=== PATIENT | female | born 1950 | race American Indian/Alaskan Native ===

== ENCOUNTER 2018-11-18 06:27 | Emergency (ER) | payer MEDICARE ==
--- NOTE | 2018-11-18 07:27 | Emergency Department Report ---
HPI - General Chief Complaint: Medical Clearance Time Seen by Provider: 11/18/18 06:31 - HPI HPI: 68-year-old -[place] female presents to the emergency department via EMS from her [facility] with the complaint of the patient pulling out her own tracheostomy tube around 4 AM this morning. She has a history of cerebral aneurysm with subsequent hemorrhage, vjf-[id number]-okrbutsnd diabetes, hypertension, GERD, GI bleed and has a tracheostomy tube in place from previous respiratory failure. The patient is nonverbal and a poor historian. The alf facility says that the patient has had the tracheostomy tube in place at least since July, when he first got her at their facility. She pulled it out around 4 AM this morning. ED Past Medical Hx - Past Medical History Previous Medical History?: Yes Hx Hypertension: Yes Hx CVA: Yes Hx Diabetes: Yes Hx GERD: Yes Hx Psychiatric Treatment: Yes (depression) Additional medical history: tracheostomy gastrostomy, cerebral anuerysm nonruptured, resp failure - Social History Smoking Status: Unknown if ever smoked - Medications Home Medications: Home Medications Medication Instructions Recorded Confirmed Last Taken Type ALPRAZolam [Xanax TAB] 0.25 mg FEEDTUBE BID 10/29/18 10/29/18 Unknown History Acetaminophen 325 mg FEEDTUBE Q6H 10/29/18 10/29/18 Unknown History Escitalopram 10 mg FEEDTUBE DAILY 10/29/18 10/29/18 Unknown History Famotidine [Pepcid] 20 mg FEEDTUBE BID 10/29/18 10/29/18 Unknown History Gabapentin 100 mg PO BID 10/29/18 10/29/18 Unknown History Glycopyrrolate 2 mg FEEDTUBE Q8H 10/29/18 10/29/18 Unknown History Metoprolol 25 mg FEEDTUBE Q8H 10/29/18 10/29/18 Unknown History Omeprazole 20 mg PO DAILY 10/29/18 10/29/18 Unknown History Ondansetron TAB 4 mg FEEDTUBE Q6H 10/29/18 10/29/18 Unknown History dilTIAZem 30 mg FEEDTUBE Q8H 10/29/18 10/29/18 Unknown History traZODone 50 mg FEEDTUBE HS 10/29/18 10/29/18 Unknown History levoFLOXacin [Levaquin TAB] 750 mg PO Q24HR 5 Days tablet 11/01/18 Unknown Rx ED Review of Systems ROS: Stated complaint: PULL OUT TRACHEOSTOMY Other details as noted in HPI Comment: Unobtainable due to pts medical conditions Physical Exam - Physical Exam Vital Signs: Vital Signs 11/18/18 07:10 Temperature 98.5 F Pulse Rate 65 Respiratory 18 Rate Blood Pressure 163/70 O2 Sat by Pulse 95 Oximetry Physical Exam: GENERAL: The patient is well-developed well-nourished. HENT: Normocephalic. Atraumatic. EYES: Extraocular motions are intact. NECK: Supple. Trachea is midline. There is a stoma to the midline anterior neck. No current bleeding. No surrounding erythema or drainage or signs of symptoms of infection. CHEST/LUNGS: Clear to auscultation. There is no respiratory distress noted. HEART/CARDIOVASCULAR: Regular. There is no tachycardia. There is no murmur. ABDOMEN: Abdomen is soft, nontender. Patient has normal bowel sounds. SKIN: Skin is warm and dry. NEURO: The patient is awake but confused, which appears to be baseline. Nonverbal. Withdraws painful stimuli. MUSCULOSKELETAL: There is no obvious deformity. There is no evidence of acute injury. ED Course Vital Signs 11/18/18 07:10 Temperature 98.5 F Pulse Rate 65 Respiratory 18 Rate Blood Pressure 163/70 O2 Sat by Pulse 95 Oximetry - Procedure Description Procedures done: Procedure: Replacement of tracheostomy tube. The patient apparently had a [address] However it appears that the stoma is starting to close or stenose. There is no current bleeding. The area does not appear infected. We are unable to place a 6 or 5 Shiley secondary to the inflammation or stenosis. However, I did have success with placement of a 4 Shiley uncuffed. There was a very small amount of bleeding, less than 5 mL, after placement that has since stopped. Oxygen saturation is 98% with room air after placement. Chest x-ray has been ordered. No obvious complications from this procedure. This procedure was done with respiratory therapy at bedside, the patient on cardiac monitoring and continuous pulse oximetry. ED Medical Decision Making - Radiology Data Radiology results: image reviewed interpreted by me: Chest x-ray shows appropriate placement of the tracheostomy tube. No pneumonia, pneumothorax. - Medical Decision Making Patient presents after pulling out her own tracheostomy tube at around 4 AM this morning. There is no current bleeding and no signs of any infection. Attempted to place the 6 Shiley, and then the 5 Shiley without any success. She may have R he started to form some stenosis or it could be secondary to inflammation. However I was able to place the 4 Shiley without any obvious competitions. There is a very small amount of bleeding but no concern for a sentinel bleed and the patient was monitored for 2 more hours after tracheostomy tube placement and there was no further bleeding or any signs of any respiratory distress. Patient has normal oxygen saturation without supplemental oxygen. Chest x-ray shows appropriate placement of the tracheostomy tube without any pneumonia, pneumothorax, pleural effusions, or any other acute process. Overall her vital signs stable throughout her ED course. The patient will be discharged back to the alf facility. They have been instructed to follow-up with otolaryngology regarding the fact that we had to downsize the tracheostomy tube and for further evaluation of the tracheostomy tube replacement. Critical Care Time: No Critical care attestation.: If time is entered above; I have spent that time in minutes in the direct care of this critically ill patient, excluding procedure time. ED Disposition Clinical Impression: Encounter for tracheostomy tube change Hypertension Qualifiers: Hypertension type: essential hypertension Qualified Code(s): I10 - Essential (primary) hypertension Disposition: TO HOME OR SELFCARE Is pt being admited?: No Condition: Stable Instructions: Tracheostomy Care (ED), Hypertension (ED) Additional Instructions: The patient will need to follow up with ENT (Otolaryngology) regarding replacement of the tracheostomy tube and the fact she has a smaller tube now in place. Return to the emergency department with any signs of SOB, heavy bleeding from the tracheostomy site, or with any concerns or acute distress. Referrals: DEBI HERNANDEZ MD [Staff Physician] - 2-3 Days SOM POPE MD [Staff Physician] - 2-3 Days RUSSEL SINGER MD [Staff Physician] - 2-3 Days Time of Disposition: 10:20
--- NOTE | 2018-11-18 07:56 | XRay Report ---
CHEST 1 VIEW INDICATION: tracheostomy tube placement. COMPARISON: 10/19/2018 FINDINGS: Support devices: Tracheostomy tube overlies the upper trachea terminating at the level of the clavicl es. Shunt tubing descends the right side of the thorax and appears continuous. Heart: Stable mild cardiomegaly. Lungs/Pleura: The lungs are generally clear. Bibasilar opacities have resolved since the previous exa m. No pleural effusion or pneumothorax. Additional findings: None. IMPRESSION: Tracheostomy appears in adequate position. Stable mild cardiomegaly. Lungs clear. Signer Name: Carlos Larios Jr, MD Signed: 11/18/2018 7:52 AM Workstation Name: [id number]
[2018-11-18 10:23] VITALS: BP 153/73
== END 2018-11-18 10:23 | disposition home or self-care (01) ==
LOC: ED 06:27
DX: Z43.0 Encounter for attention to tracheostomy (principal); I10 Essential (primary) hypertension; E11.9 Type 2 diabetes mellitus without complications; K21.9 Gastro-esophageal reflux disease without esophagitis; F32.9 Major depressive disorder, single episode, unspecified; Z88.8 Allergy status to other drugs, medicaments and biological substances; Z79.899 Other long term (current) drug therapy
CPT/HCPCS: 71045; 99283

== ENCOUNTER 2018-12-14 07:55 | Observation (INO) | payer MEDICARE ==
--- NOTE | 2018-12-14 08:32 | Emergency Department Report ---
ED General Adult HPI - General Chief complaint: Dyspnea/Respdistress Stated complaint: DISLODGED TRACH Time Seen by Provider: 12/14/18 08:23 Source: patient, EMS, RN notes reviewed, old records reviewed Mode of arrival: Stretcher Limitations: Other - History of Present Illness Initial comments: Doroteo Ch is a 68-year-old -Malagasy female who comes to the ER today from the long-term via EMS. She comes after being found with her tracheostomy t ube dislodged. Patient has had the trach since May of this year. The trach was placed at [facility] after the patient suffered a subarachnoid hemorrhage. On discharge from [facility] patient was sent to the long-term. She had no follow up for trach decannulation. She has not required vent support since initial CVA Her next of kin is an adult son Jarrett [phone] Patient has been seen numerous times here in the emergency room. Including on November 18 she came in for the same complaint. At that time Dr. Lovelace saw the patient. Patient had a non-cuffed 6.O Shiley trach that was dislodged on that visit. Dr. Lovelace had some difficulty replacing this 6 so he placed a 4 cuffless was trach. It is this 4 cuffless trach that is out today. Attempts to place the trach were unsuccessful given stenosis of the trach site. Forcing the trach would cause trauma. Patient however is maintaining her airway, coughing and satting 98-100% on room air. I called Dr. Lewis on patient's arrival discussed the situation with him. He concurs that perhaps the patient doesn't need the trach at this point in time. So we will monitor the patient. I have called the son and updated him on patient's condition. The long-term had not contacted him. H SAH- 05-27 - treated at [facility] debility- trach and peg HTN DM GERD COPD anxiety -: Sudden Severity scale (0 -10): 0 Associated Symptoms: denies other symptoms - Related Data Home Medications Medication Instructions Recorded Confirmed Last Taken ALPRAZolam [Xanax TAB] 0.25 mg FEEDTUBE BID 10/29/18 11/30/18 Unknown Acetaminophen 650 mg FEEDTUBE Q6H PRN 10/29/18 11/30/18 Unknown Escitalopram 10 mg FEEDTUBE DAILY 10/29/18 11/30/18 Unknown Famotidine [Pepcid] 20 mg FEEDTUBE BID 10/29/18 11/30/18 Unknown Gabapentin 100 mg PO BID 10/29/18 11/30/18 Unknown Metoprolol 25 mg FEEDTUBE Q8H 10/29/18 11/30/18 Unknown Ondansetron TAB 4 mg FEEDTUBE Q6H PRN 10/29/18 11/30/18 Unknown dilTIAZem 30 mg FEEDTUBE Q8H 10/29/18 11/30/18 Unknown traZODone 50 mg FEEDTUBE HS 10/29/18 11/30/18 Unknown Glucagon,Human Recombinant 1 mg IJ Q15MIN PRN 11/30/18 11/30/18 Unknown [Glucagon Emergency Kit] HumaLOG See Protocol SQ Q6H 11/30/18 11/30/18 Unknown Insulin Glargine [Lantus VIAL] 43 units SUB-Q QHS 11/30/18 11/30/18 Unknown Ipratropium [Atrovent NEB] 1 vial IH Q6H 11/30/18 11/30/18 Unknown Metoclopramide [Reglan ORAL LIQ] 5 mg FEEDTUBE Q8H 11/30/18 11/30/18 Unknown Scopolamine [Transderm-Scop] 1 each TD Q3D 11/30/18 11/30/18 Unknown Sodium,Potassium Phosphates 1 pack FEEDTUBE BID 11/30/18 11/30/18 Unknown [Phos-Nak Packet] oxyCODONE [roxiCODONE] 5 mg PO Q6HR PRN 11/30/18 11/30/18 Unknown Previous Rx's Medication Instructions Recorded Last Taken Type Docusate Sodium [Colace ORAL LIQ] 100 mg FEEDTUBE BID #60 oralsyr 12/05/18 Unknown Rx Polyethylene Glycol 3350 17 gm PO DAILY #30 powd.pack 12/05/18 Unknown Rx [Powderlax] levoFLOXacin [Levaquin TAB] 750 mg PO DAILY #3 tablet 12/05/18 Unknown Rx Allergies Allergy/AdvReac Type Severity Reaction Status Date / Time mold Allergy Unknown Verified 10/29/18 03:01 ragwood Allergy Unknown Uncoded 10/29/18 03:01 ED Review of Systems ROS: Stated complaint: DISLODGED TRACH Other details as noted in HPI Comment: All other systems reviewed and negative ED Past Medical Hx - Past Medical History Previous Medical History?: Yes Hx Hypertension: Yes Hx CVA: Yes Hx Diabetes: Yes Hx GERD: Yes Hx Psychiatric Treatment: Yes (depression) Additional medical history: tracheostomy , gastrostomy, cerebral anuerysm nonruptured, resp failure, dysphagia, GI Hemmorhage, nontraumatic subarachnoid hemorrhage - Surgical History Past Surgical History?: Yes Additional Surgical History: trach - Family History Family history: no significant - Social History Smoking Status: Never Smoker Substance Use Type: None - Medications Home Medications: Home Medications Medication Instructions Recorded Confirmed Last Taken Type ALPRAZolam [Xanax TAB] 0.25 mg FEEDTUBE BID 10/29/18 11/30/18 Unknown History Acetaminophen 650 mg FEEDTUBE Q6H PRN 10/29/18 11/30/18 Unknown History Escitalopram 10 mg FEEDTUBE DAILY 10/29/18 11/30/18 Unknown History Famotidine [Pepcid] 20 mg FEEDTUBE BID 10/29/18 11/30/18 Unknown History Gabapentin 100 mg PO BID 10/29/18 11/30/18 Unknown History Metoprolol 25 mg FEEDTUBE Q8H 10/29/18 11/30/18 Unknown History Ondansetron TAB 4 mg FEEDTUBE Q6H PRN 10/29/18 11/30/18 Unknown History dilTIAZem 30 mg FEEDTUBE Q8H 10/29/18 11/30/18 Unknown History traZODone 50 mg FEEDTUBE HS 10/29/18 11/30/18 Unknown History Glucagon,Human Recombinant 1 mg IJ Q15MIN PRN 11/30/18 11/30/18 Unknown History [Glucagon Emergency Kit] HumaLOG See Protocol SQ Q6H 11/30/18 11/30/18 Unknown History Insulin Glargine [Lantus VIAL] 43 units SUB-Q QHS 11/30/18 11/30/18 Unknown History Ipratropium [Atrovent NEB] 1 vial IH Q6H 11/30/18 11/30/18 Unknown History Metoclopramide [Reglan ORAL LIQ] 5 mg FEEDTUBE Q8H 11/30/18 11/30/18 Unknown History Scopolamine [Transderm-Scop] 1 each TD Q3D 11/30/18 11/30/18 Unknown History Sodium,Potassium Phosphates 1 pack FEEDTUBE BID 11/30/18 11/30/18 Unknown History [Phos-Nak Packet] oxyCODONE [roxiCODONE] 5 mg PO Q6HR PRN 11/30/18 11/30/18 Unknown History Docusate Sodium [Colace ORAL LIQ] 100 mg FEEDTUBE BID #60 oralsyr 12/05/18 Unknown Rx Polyethylene Glycol 3350 17 gm PO DAILY #30 powd.pack 12/05/18 Unknown Rx [Powderlax] levoFLOXacin [Levaquin TAB] 750 mg PO DAILY #3 tablet 12/05/18 Unknown Rx ED Physical Exam - General Limitations: Other General appearance: alert, in no apparent distress - Head Head exam: Present: normocephalic - Eye Eye exam: Present: normal appearance - ENT ENT exam: Present: mucous membranes dry, mucous membranes moist - Neck Neck exam: Present: other - Respiratory Respiratory exam: Present: normal lung sounds bilaterally. Absent: respiratory distress - Cardiovascular Cardiovascular Exam: Present: regular rate, normal rhythm. Absent: systolic murmur, diastolic murmur, rubs, gallop - GI/Abdominal GI/Abdominal exam: Present: soft, normal bowel sounds - Rectal Rectal exam: Present: deferred - Extremities Exam Extremities exam: Present: normal inspection - Back Exam Back exam: Present: normal inspection - Neurological Exam Neurological exam: Present: alert - Psychiatric Psychiatric exam: Present: flat affect - Skin Skin exam: Present: warm, dry. Absent: rash ED Course Vital Signs 12/14/18 12/14/18 12/14/18 08:02 08:37 08:38 Temperature 98.5 F Pulse Rate 70 68 Respiratory 18 18 16 Rate Blood Pressure 131/69 Blood Pressure 131/69 132/67 [Right] O2 Sat by Pulse 92 99 98 Oximetry - Reevaluation(s) Reevaluation #1: 12/14/18 attempts to replace 4.0 cuffless unsuccessful due to inflammation/swelling/stricture of trach site the trach was not in trachea on arrival to ER per ER staff suction cath placed to keep patent NC no inc wob no resp distress sats 99-100 minimal secretions when suctions maintaining airway Reevaluation #2: 12/14/18 10:17 oxygen sat 99-100 on room air no distress vss no fever Reevaluation #3: 12/14/18 10:22 Dr Blake discussed with [facility] ED Medical Decision Making - Lab Data Result diagrams: 12/14/18 08:59 12/14/18 08:59 - Radiology Data Radiology results: report reviewed, image reviewed - Medical Decision Making From SNF with dislodged trach NAD Staffed with Dr Blake Discussed with Dr Lewis- [place] recs. monitoring Admit to [facility] for overnight monitor. I suspect she will not need trach and can be dc in AM to SNF Family notified of admit at 1020 Labs 12/14/18 12/14/18 08:59 08:59 WBC 9.5 RBC 3.67 Hgb 10.6 Hct 32.2 MCV 88 MCH 29 MCHC 33 RDW 16.3 H Plt Count 426 Sodium 145 Potassium 4.1 Chloride 106.6 Carbon Dioxide 27 Anion Gap 16 BUN 18 H Creatinine 0.7 Estimated GFR > 60 BUN/Creatinine Ratio 26 Glucose 139 H Calcium 9.3 Total Bilirubin < 0.20 AST 23 ALT 18 Alkaline Phosphatase 129 Total Protein 6.8 Albumin 2.8 L Albumin/Globulin Ratio 0.7 Vital Signs 12/14/18 12/14/18 12/14/18 08:02 08:37 08:38 Temperature 98.5 F Pulse Rate 70 68 Respiratory 18 18 16 Rate Blood Pressure 131/69 Blood Pressure 131/69 132/67 [Right] O2 Sat by Pulse 92 99 98 Oximetry - Differential Diagnosis trach dislodged Critical care attestation.: If time is entered above; I have spent that time in minutes in the direct care of this critically ill patient, excluding procedure time. ED Disposition Clinical Impression: Status post tracheostomy, Trachea displaced Disposition: DC-09 OP ADMIT IP TO THIS HOSP Is pt being admited?: Yes Does the pt Need Aspirin: No Condition: Stable Time of Disposition: 09:14
[2018-12-14 09:26] LABS: Hematocrit 32.2 % (30.3-42.9); Hemoglobin 10.6 gm/dl (10.1-14.3); Mean Corpuscular HGB Conc 33 % (30-34); Mean Corpuscular Volume 88 fl (79-97); Platelet Count 426 K/mm3 (140-440); Red Blood Count 3.67 M/mm3 (3.65-5.03); Red Cell Distribution Width 16.3 % (13.2-15.2)
[2018-12-14 09:38] LABS: Alanine Aminotransferase 18 units/L (7-56); Albumin 2.8 g/dL (3.9-5); BUN/Creatinine Ratio 26; Blood Urea Nitrogen 18 mg/dL (7-17); Calcium 9.3 mg/dL (8.4-10.2); Hemolysis Index 25
--- NOTE | 2018-12-14 09:40 | XRay Report ---
CHEST 1 VIEW INDICATION: cough. COMPARISON: 11/30/2018 FINDINGS: Support devices: Tracheostomy is no longer seen and presumably removed. Heart: Within normal limits. Lungs/Pleura: No acute air space or interstitial disease. Poor inspiration is noted. Additional findings: None. IMPRESSION: No acute findings. Signer Name: Carlos Larios Jr, MD Signed: 12/14/2018 9:36 AM Workstation Name: [id number]
[2018-12-14] MEDS ORDERED: oxyCODONE 5 MG TAB PO PRN (10:37)
[2018-12-14] MEDS ORDERED: SCOPOLAMINE TRANSDERMAL PATCH 72 HR TD SCH (11:00)
--- NOTE | 2018-12-14 11:02 | History and Physical Report ---
History of Present Illness Date of examination: 12/14/18 Date of admission: 12/14/18 10:10 Chief complaint: Dislodged trach History of present illness: 68-year-old -German female with past medical history significant for subarachnoid hemorrhage, debility, hypertension, diverticulitis, GERD, COPD, anxiety disorder, status post trach and PEG after subarachnoid hemorrhage at [facility] presented to the emergency department complaining of dislodged trach. Patient came from assisted. Patient was not followed back for decannulation of trach. Patient doesn't speak much, but she said she is okay. Patient's saturation was around 92 on room air. General surgery Dr Lewis was consulted and recommended to admit for observation overnight and if there is no respiratory distress patient can be discharged. If the patient desaturates he will place back the trach. Review of system be obtained because the patient is nonverbal. Past History Past Medical History: COPD, diabetes, hypertension, stroke Past Surgical History: Other (trach placement) Social history: full code, other (couldn't obtained) Family history: other (couldn't obtained) Medications and Allergies Allergies Allergy/AdvReac Type Severity Reaction Status Date / Time mold Allergy Unknown Verified 10/29/18 03:01 ragwood Allergy Unknown Uncoded 10/29/18 03:01 Home Medications Medication Instructions Recorded Confirmed Last Taken Type ALPRAZolam [Xanax TAB] 0.25 mg FEEDTUBE BID 10/29/18 11/30/18 Unknown History Acetaminophen 650 mg FEEDTUBE Q6H PRN 10/29/18 11/30/18 Unknown History Escitalopram 10 mg FEEDTUBE DAILY 10/29/18 11/30/18 Unknown History Famotidine [Pepcid] 20 mg FEEDTUBE BID 10/29/18 11/30/18 Unknown History Gabapentin 100 mg PO BID 10/29/18 11/30/18 Unknown History Metoprolol 25 mg FEEDTUBE Q8H 10/29/18 11/30/18 Unknown History Ondansetron TAB 4 mg FEEDTUBE Q6H PRN 10/29/18 11/30/18 Unknown History dilTIAZem 30 mg FEEDTUBE Q8H 10/29/18 11/30/18 Unknown History traZODone 50 mg FEEDTUBE HS 10/29/18 11/30/18 Unknown History Glucagon,Human Recombinant 1 mg IJ Q15MIN PRN 11/30/18 11/30/18 Unknown History [Glucagon Emergency Kit] HumaLOG See Protocol SQ Q6H 11/30/18 11/30/18 Unknown History Insulin Glargine [Lantus VIAL] 43 units SUB-Q QHS 11/30/18 11/30/18 Unknown History Ipratropium [Atrovent NEB] 1 vial IH Q6H 11/30/18 11/30/18 Unknown History Metoclopramide [Reglan ORAL LIQ] 5 mg FEEDTUBE Q8H 11/30/18 11/30/18 Unknown History Scopolamine [Transderm-Scop] 1 each TD Q3D 11/30/18 11/30/18 Unknown History Sodium,Potassium Phosphates 1 pack FEEDTUBE BID 11/30/18 11/30/18 Unknown History [Phos-Nak Packet] oxyCODONE [roxiCODONE] 5 mg PO Q6HR PRN 11/30/18 11/30/18 Unknown History Docusate Sodium [Colace ORAL LIQ] 100 mg FEEDTUBE BID #60 oralsyr 12/05/18 Unknown Rx Polyethylene Glycol 3350 17 gm PO DAILY #30 powd.pack 12/05/18 Unknown Rx [Powderlax] levoFLOXacin [Levaquin TAB] 750 mg PO DAILY #3 tablet 12/05/18 Unknown Rx Active Meds: Active Medications Alprazolam (Xanax) 0.25 mg FEEDTUBE BID YANCY Oxycodone HCl (Roxicodone) 5 mg PO Q6HR PRN PRN Reason: Pain, Moderate (4-6) Polyethylene Glycol (Miralax 3350) 17 gm PO DAILY YANCY Scopolamine (Transderm-Scop) 1 each TD Q3D YANCY Review of Systems ROS unobtainable: due to mental status (Patient is non verbal) Exam - Physical Exam Narrative exam: Patient is saturating well on room air, not in cardiopulmonary distress. The patient appeared well nourished and normally developed. Vital signs as documented. Head exam is unremarkable. No scleral icterus . Neck is without jugular venous distension, thyromegaly, or carotid bruits. Lungs are clear to auscultation. Cardiac exam reveals regular rate and Rhythm. Abdominal exam reveals normal bowel sounds. Extremities are nonedematous and both femoral and pedal pulses are normal. KEYSMITH: non-verbal. - Constitutional Vitals: Temp Pulse Resp BP Pulse Ox 98.5 F 62 18 121/57 99 12/14/18 08:37 12/14/18 10:24 12/14/18 10:24 12/14/18 10:24 12/14/18 10:24 Results - Labs CBC & Chem 7: 12/14/18 08:59 12/14/18 08:59 Labs: Laboratory Last Values WBC 9.5 K/mm3 (4.5-11.0) 12/14/18 08:59 RBC 3.67 M/mm3 (3.65-5.03) 12/14/18 08:59 Hgb 10.6 gm/dl (10.1-14.3) 12/14/18 08:59 Hct 32.2 % (30.3-42.9) 12/14/18 08:59 MCV 88 fl (79-97) 12/14/18 08:59 MCH 29 pg (28-32) 12/14/18 08:59 MCHC 33 % (30-34) 12/14/18 08:59 RDW 16.3 % (13.2-15.2) H 12/14/18 08:59 Plt Count 426 K/mm3 (140-440) 12/14/18 08:59 Sodium 145 mmol/L (137-145) 12/14/18 08:59 Potassium 4.1 mmol/L (3.6-5.0) 12/14/18 08:59 Chloride 106.6 mmol/L (98-107) 12/14/18 08:59 Carbon Dioxide 27 mmol/L (22-30) 12/14/18 08:59 Anion Gap 16 mmol/L 12/14/18 08:59 BUN 18 mg/dL (7-17) H 12/14/18 08:59 Creatinine 0.7 mg/dL (0.7-1.2) 12/14/18 08:59 Estimated GFR > 60 ml/min 12/14/18 08:59 BUN/Creatinine Ratio 26 % 12/14/18 08:59 Glucose 139 mg/dL (65-100) H 12/14/18 08:59 Calcium 9.3 mg/dL (8.4-10.2) 12/14/18 08:59 Total Bilirubin < 0.20 mg/dL (0.1-1.2) 12/14/18 08:59 AST 23 units/L (5-40) 12/14/18 08:59 ALT 18 units/L (7-56) 11 08:59 Alkaline Phosphatase 129 units/L (35-129) 12/14/18 08:59 Total Protein 6.8 g/dL (6.3-8.2) 12/14/18 08:59 Albumin 2.8 g/dL (3.9-5) L 12/14/18 08:59 Albumin/Globulin Ratio 0.7 % 12/14/18 08:59 Assessment and Plan Assessment and plan: Dislodged trach - patient is saturating well on room air - Gen. surgery was consulted and recommended to admit the patient for observat ion, patient will be monitored overnight and if the patient desat he will put the trach if the patient does have any problems in breathing she can be discharged home. History of subarachnoid hemorrhage, patient is aphasic - Supportive care Anxiety disorder - Continue Xanax HTN - Controlled - We'll resume all medications if needed DVT prophylaxis -SCDs because of subarachnoid hemorrhage Disposition - Admitted to [facility] unit for observation Advance Directives: Yes VTE prophylaxis?: Mechanical Contraindication Mechanical VTE Prophylaxis: Contraindicated Plan of care discussed with patient/family: Yes
--- NOTE | 2018-12-14 12:20 | Event Note ---
Date: 12/14/18 Discussed case with ED and Dr. Spain. The patient probably had the trach initially placed to allow for weaning off the ventilator in July of this year. This is the second time that trach has fallen out. She currently is oxygenating and ventilating well without a trach in place. Would not recommend replacing trach. Allow the hole to close. Only needs a dry dressing to cover the wound until it seals in the next few days. Please call with questions.
[2018-12-14] MEDS ORDERED: SODIUM BICARBONATE 325 MG TAB FEEDTUBE PRN (12:49)
[2018-12-14] MEDS ORDERED: LIPASE 10,500/PROTEASE 25,000/AMYLASE 43,750 (UNITS) DR CAP FEEDTUBE PRN (12:49)
[2018-12-14] MEDS ORDERED: SIMPLE SYRUP 15 ML FEEDTUBE PRN ×2 (12:49)
[2018-12-14] MEDS: ALPRAZolam 0.25 MG TAB FEEDTUBE SCH (21:57)
[2018-12-15 08:22] VITALS: BP 130/80
--- NOTE | 2018-12-15 09:52 | Discharge Summary ---
Providers - Providers Date of Admission: 12/14/18 10:10 Date of discharge: 12/15/18 Attending physician: ALY AVILA MD 12/14/18 10:12 Consult to Physician [CONS] Routine Comment: DR ANDREWS NOTIFIED BY ASTRID Consulting Provider: LAUREN ANDREWS Physician Instructions: Tahlia notified; admitted to [facility] Reason For Exam: dislodged trach- trach out- pt doing well-obs over 12/14/18 10:29 Consult to Dietitian/Nutrition [CONS] Routine Physician Instructions: Reason For Exam: Reason for Consult: Write/Manage Tube Feeding 12/15/18 08:48 Physical Therapy Evaluation and Treat [CONS] Routine Comment: Reason For Exam: Weakness Primary care physician: MUSIC MANAGER Hospitalization Reason for admission: Trach dislodged Condition: Stable Hospital course: 68-year-old -[place] female with past medical history significant for subarachnoid hemorrhage, debility, hypertension, diverticulitis, GERD, COPD, anxiety disorder, status post trach and PEG after subarachnoid hemorrhage at [facility] presented to the emergency department complaining of dislodged trach. Patient came from longterm. Patient was not followed back for decannulation of trach. Patient doesn't speak much, but she said she is okay. Patient's saturation was around 92 on room air. General surgery Dr Raul ignacio was consulted and recommended to admit for observation overnight and if there is no respiratory distress patient can be discharged. If the patient desaturates he will place back the trach. Patient was admitted to the floor and was observed overnight. Patient didn't have any difficulty breathing, saturating well on room air. Patient discharged to [facility] with the advise to have follow up at [place] for the decannulation of the trachesostomy site. Patient was hemodynamically stable at the time of discharge. Disposition: [id number]/[id number] SN[facility] C[facility] Time spent for discharge: 32 minutes - Discharge Diagnoses (1) Trachea displaced Status: Acute Core Measure Documentation - Palliative Care Palliative Care/ Comfort Measures: Not Applicable - Core Measures Any of the following diagnoses?: none Exam - Physical Exam Narrative exam: Patient is saturating well on room air, not in cardiopulmonary distress. The patient appeared well nourished and normally developed. Vital signs as documented. Head exam is unremarkable. No scleral icterus . Neck is without jugular venous distension, thyromegaly, or carotid bruits. Lungs are clear to auscultation. Cardiac exam reveals regular rate and Rhythm. Abdominal exam reveals normal bowel sounds. Extremities are nonedematous and both femoral and pedal pulses are normal. BILLING ADJUDICATOR: non-verbal. - Constitutional Vitals: Temp Pulse Resp BP Pulse Ox 98.6 F 81 18 130/80 98 12/15/18 07:49 12/15/18 07:49 12/15/18 07:49 12/15/18 07:49 12/15/18 07:49 Plan Activity: advance as tolerated Weight Bearing Status: Weight Bear as Tolerated Diet: low salt Care Plan Goals: F/U with PCP Follow up with: PRIMARY CAREMD [Primary Care Provider] - 3-5 Days
[2018-12-15] MEDS ORDERED: POLYETHYLENE GLYCOL 3350 17 GM POWDER PO SCH (10:00)
[2018-12-15] MEDS: ALPRAZolam 0.25 MG TAB FEEDTUBE SCH (10:00)
== END 2018-12-15 13:15 ==
LOC: ED 07:55 → 2B-ACE 10:10
PROVIDERS: ADMIT Internal Medicine; ATTEND Internal Medicine
DX: Z43.1 Encounter for attention to gastrostomy (principal); I10 Essential (primary) hypertension; E11.9 Type 2 diabetes mellitus without complications; J44.9 Chronic obstructive pulmonary disease, unspecified; K21.9 Gastro-esophageal reflux disease without esophagitis; F41.9 Anxiety disorder, unspecified; F32.9 Major depressive disorder, single episode, unspecified; Z86.73 Personal history of transient ischemic attack (TIA), and cerebral infarction without residual deficits; Z79.4 Long term (current) use of insulin; Z79.899 Other long term (current) drug therapy; Z91.048 Other nonmedicinal substance allergy status
CPT/HCPCS: 36415; 71045; 80053; 82962; 85027; 99284; G0378

== ENCOUNTER 2019-01-08 13:32 | Emergency (ER) | payer MEDICARE ==
--- NOTE | 2019-01-08 14:36 | Emergency Department Report ---
ED General Adult HPI - General Chief complaint: Tube Replacement Stated complaint: G TUBE Time Seen by Provider: 01/08/19 14:30 Source: EMS Mode of arrival: Stretcher Limitations: Other - History of Present Illness Initial comments: Patient is a 68-year-old female with history of acute failure with hypoxemia, history of subarachnoid hemorrhage, type 2 diabetes, depression, dysphagia and hypertension. Patient is a prison patient brought to the emergency room via EMS for G-tube placement. EMS stated that the patient pulled her G-tube approximately 1 hour ago. Patient had a tracheostomy tube that has been removed 2 weeks ago. Patient is not communicating, this is her baseline. - Related Data Home Medications Medication Instructions Recorded Confirmed Last Taken ALPRAZolam [Xanax TAB] 0.25 mg FEEDTUBE BID 10/29/18 12/14/18 12/13/18 21:00 Acetaminophen 650 mg FEEDTUBE Q6H PRN 10/29/18 12/14/18 Unknown Escitalopram 10 mg FEEDTUBE DAILY 10/29/18 12/14/18 12/13/18 09:00 Famotidine [Pepcid] 20 mg FEEDTUBE BID 10/29/18 12/14/18 12/13/18 21:00 Gabapentin 100 mg PO BID 10/29/18 12/14/18 12/13/18 21:00 Metoprolol 25 mg FEEDTUBE Q8H 10/29/18 12/14/18 Unknown Ondansetron TAB 4 mg FEEDTUBE Q6H PRN 10/29/18 12/14/18 Unknown dilTIAZem 30 mg FEEDTUBE Q8H 10/29/18 12/14/18 Unknown traZODone 50 mg FEEDTUBE HS 10/29/18 12/14/18 12/13/18 21:00 Glucagon,Human Recombinant 1 mg IJ Q15MIN PRN 11/30/18 12/14/18 Unknown [Glucagon Emergency Kit] HumaLOG See Protocol SQ Q6H 11/30/18 12/14/18 Unknown Insulin Glargine [Lantus VIAL] 43 units SUB-Q QHS 11/30/18 12/14/18 12/13/18 21:00 Ipratropium [Atrovent NEB] 1 vial IH Q6H 11/30/18 12/14/18 Unknown Metoclopramide [Reglan ORAL LIQ] 5 mg FEEDTUBE Q8H 11/30/18 12/14/18 Unknown Scopolamine [Transderm-Scop] 1 each TD Q3D 11/30/18 12/14/18 Unknown Sodium,Potassium Phosphates 1 pack FEEDTUBE BID 11/30/18 12/14/18 12/13/18 21:00 [Phos-Nak Packet] oxyCODONE [roxiCODONE] 5 mg PO Q6HR PRN 11/30/18 12/14/18 Unknown Previous Rx's Medication Instructions Recorded Last Taken Type Docusate Sodium [Colace ORAL LIQ] 100 mg FEEDTUBE BID #60 oralsyr 12/05/18 12/13/18 21:00 Rx Polyethylene Glycol 3350 17 gm PO DAILY #30 powd.pack 12/05/18 12/13/18 09:00 Rx [Powderlax] Allergies Allergy/AdvReac Type Severity Reaction Status Date / Time mold Allergy Unknown Verified 10/29/18 03:01 ragwood Allergy Unknown Uncoded 10/29/18 03:01 ED Review of Systems ROS: Stated complaint: G TUBE Other details as noted in HPI Comment: Unobtainable due to pts medical conditions ED Past Medical Hx - Past Medical History Hx Hypertension: Yes Hx CVA: Yes Hx Diabetes: Yes Hx GERD: Yes Hx Psychiatric Treatment: Yes (depression) Additional medical history: tracheostomy , gastrostomy, cerebral anuerysm nonr uptured, resp failure, dysphagia, GI Hemmorhage, nontraumatic subarachnoid hemorrhage - Surgical History Additional Surgical History: trach - Social History Smoking Status: Never Smoker - Medications Home Medications: Home Medications Medication Instructions Recorded Confirmed Last Taken Type ALPRAZolam [Xanax TAB] 0.25 mg FEEDTUBE BID 10/29/18 12/14/18 12/13/18 21:00 History Acetaminophen 650 mg FEEDTUBE Q6H PRN 10/29/18 12/14/18 Unknown History Escitalopram 10 mg FEEDTUBE DAILY 10/29/18 12/14/18 12/13/18 09:00 History Famotidine [Pepcid] 20 mg FEEDTUBE BID 10/29/18 12/14/18 12/13/18 21:00 History Gabapentin 100 mg PO BID 10/29/18 12/14/18 12/13/18 21:00 History Metoprolol 25 mg FEEDTUBE Q8H 10/29/18 12/14/18 Unknown History Ondansetron TAB 4 mg FEEDTUBE Q6H PRN 10/29/18 12/14/18 Unknown History dilTIAZem 30 mg FEEDTUBE Q8H 10/29/18 12/14/18 Unknown History traZODone 50 mg FEEDTUBE HS 10/29/18 12/14/18 12/13/18 21:00 History Glucagon,Human Recombinant 1 mg IJ Q15MIN PRN 11/30/18 12/14/18 Unknown History [Glucagon Emergency Kit] HumaLOG See Protocol SQ Q6H 11/30/18 12/14/18 Unknown History Insulin Glargine [Lantus VIAL] 43 units SUB-Q QHS 11/30/18 12/14/18 12/13/18 21:00 History Ipratropium [Atrovent NEB] 1 vial IH Q6H 11/30/18 12/14/18 Unknown History Metoclopramide [Reglan ORAL LIQ] 5 mg FEEDTUBE Q8H 11/30/18 12/14/18 Unknown History Scopolamine [Transderm-Scop] 1 each TD Q3D 11/30/18 12/14/18 Unknown History Sodium,Potassium Phosphates 1 pack FEEDTUBE BID 11/30/18 12/14/18 12/13/18 21:00 History [Phos-Nak Packet] oxyCODONE [roxiCODONE] 5 mg PO Q6HR PRN 11/30/18 12/14/18 Unknown History Docusate Sodium [Colace ORAL LIQ] 100 mg FEEDTUBE BID #60 oralsyr 12/05/18 12/14/18 12/13/18 21:00 Rx Polyethylene Glycol 3350 17 gm PO DAILY #30 powd.pack 12/05/18 12/14/18 12/13/18 09:00 Rx [Powderlax] ED Physical Exam - General Limitations: Physical Limitation, Other General appearance: alert, in no apparent distress - Head Head exam: Present: atraumatic, normocephalic, normal inspection - Eye Eye exam: Present: normal appearance - ENT ENT exam: Present: normal exam, normal orophraynx, mucous membranes moist - Neck Neck exam: Present: normal inspection. Absent: tenderness, meningismus - Respiratory Respiratory exam: Present: normal lung sounds bilaterally - Cardiovascular Cardiovascular Exam: Present: regular rate, normal rhythm, normal heart sounds - GI/Abdominal GI/Abdominal exam: Present: soft, normal bowel sounds. Absent: distended, tenderness, guarding, rebound, rigid, organomegaly, mass, bruit, pulsatile mass, hernia - Extremities Exam Extremities exam: Present: normal inspection - Neurological Exam Neurological exam: Present: alert - Psychiatric Psychiatric exam: Present: normal mood ED Course Vital Signs 01/08/19 01/08/19 15:04 16:44 Temperature 99.3 F Pulse Rate 106 H Respiratory 18 18 Rate Blood Pressure 159/88 Blood Pressure 159/88 154/75 [Right] O2 Sat by Pulse 97 93 Oximetry - Procedure Description Procedures done: G-tube replaced by me with a size 18. Patient tolerated procedure well was no comparison. KUB showed contrast in the stomach and duodenum. ED Medical Decision Making - Medical Decision Making Patient is a 68-year-old female with history of acute failure with hypoxemia, history of subarachnoid hemorrhage, type 2 diabetes, depression, dysphagia and hypertension. Patient is a prison patient brought to the emergency room via EMS for G-tube placement. EMS stated that the patient pulled her G-tube approximately 1 hour ago. Patient had a tracheostomy tube that has been removed 2 weeks ago. Patient is not communicating, this is her baseline. G-tube replaced by me using a size 18 Frisian. Patient tolerated procedure well with no complication. Critical care attestation.: If time is entered above; I have spent that time in minutes in the direct care of this critically ill patient, excluding procedure time. ED Disposition Clinical Impression: Malfunction of gastrostomy tube Disposition: - TO HOME OR SELFCARE Is pt being admited?: No Condition: Stable Instructions: How to Use and Care for Your PEG Tube (ED) Referrals: PRIMARY CARE, [Referring] - 3-5 Days
--- NOTE | 2019-01-08 16:16 | XRay Report ---
ABDOMEN 2 VIEW(S) INDICATION / CLINICAL INFORMATION: Gtube placement. COMPARISON: KUB from 12/01/2018 FINDINGS: TUBES / LINES: NG tube in the midline was injected with oral contrast. No extravasation of contrast a nd the contrast accumulated in the stomach as well as the duodenum. BOWEL GAS PATTERN: No significant abnormality. FREE AIR / EXTRALUMINAL GAS: None seen. ADDITIONAL FINDINGS: No significant additional findings. IMPRESSION: 1. Gastrostomy tube as above. Signer Name: Nii Ramírez MD Signed: 01/08/2019 4:12 PM Workstation Name: [email or web address]
[2019-01-08 19:06] VITALS: BP 152/86
== END 2019-01-08 18:15 | disposition home or self-care (01) ==
LOC: ED 13:32
DX: K94.23 Gastrostomy malfunction (principal); I10 Essential (primary) hypertension; K21.9 Gastro-esophageal reflux disease without esophagitis; F32.9 Major depressive disorder, single episode, unspecified; Z86.73 Personal history of transient ischemic attack (TIA), and cerebral infarction without residual deficits; Z79.899 Other long term (current) drug therapy; Z88.8 Allergy status to other drugs, medicaments and biological substances
CPT/HCPCS: 74018